=== PATIENT | female | born 1985 | race Caucasian/White ===

== ENCOUNTER 2016-11-09 08:28 | Emergency (ER) | payer OTHER ==
[~2016-11-09] VITALS: Ht 162.6 cm; Wt 75.5 kg
--- NOTE | ~2016-11-09 | MR17 ---
[facility] A Service of [facility] RADIOLOGY TEXT RESULTS PATIENT: YANCI KIRAN LOCATION: [facility] : 89 UNIT #: [id number] AGE: [address]: Eli Bertrand APRN SEX: F ORDER DR: [id number] [facility] [address] [place], [place] [address] [id number] E MR#: [id number] Acc #: [id number] NAME: YANCI KIRAN : 1985 SEX: F STUDY DATE/TIME: 11/09/2016 12:48 UNIT: [facility] ROOM: STUDY DESCRIPTION: MR Brain WWo Contrast Attending Physician: Eli Bertrand A.P.R.N. Ordering Physician: Edd Pereira M.D. Primary Care Physician: Sloan Leung M.D. MRI CENTER REPORT This report is preliminary unless electronic signature is present. EXAM MRI brain with and without contrast HISTORY Left-side facial droop and headache. Left side facial swelling has worsened since last night with left side facial droop. Swelling started on 11/05/2016. Patient felt there was concern for Montilla's palsy. No history of trauma or cancer provided. COMMENTS MRI of the brain was performed prior to and following intravenous administration of 16 mL of MultiHance. This includes pre and postcontrast imaging of the whole brain as well as pre and postcontrast imaging of the internal auditory canals with higher resolution. There is no evidence for a recent ischemic insult on the diffusion series. Midline structures are unremarkable. There is no extraaxial fluid collection. The ventricles are normal in size and configuration and holland-white junction is well-maintained for age group. The major intracranial flow voids are maintained allowing for hypoplastic or diseased distal right vertebral artery. Paranasal sinuses are clear and mastoid air cells are clear. Evaluation of the internal auditory canals shows a well-defined appearance of bilateral seventh and eighth nerve complex. Following contrast administration, there is no definite pathologic intracanalicular enhancement. Specifically, no asymmetric enhancement of the facial nerve is appreciated, but this does not exclude the diagnosis of Montilla palsy suspected clinically. Clinical followup is recommended. Postcontrast imaging of the whole brain shows no pathologic intracranial enhancement. IMPRESSION 1. Essentially normal MRI of the brain with attention to the IACs with without contrast. 2. There is no evidence for recent ischemic insult on the diffusion STS. [facility] A Service of [facility] RADIOLOGY TEXT RESULTS PATIENT: YANCI KIRAN [id number] : 89 UNIT #: [id number] AGE: [address]: Eli Bertrand APRN SEX: F ORDER DR: dora. 3. There is no imaging evidence for Montilla's palsy but this does not exclude the diagnosis clinically. STAT * RESULT Dictated by... Rosenda Kathleen M.D. THIS IS AN ELECTRONICALLY VERIFIED REPORT Rosenda Kathleen M.D. at 11/09/2016 3:21 PM CHRISTINE/francesco TD: 11/09/2016 14:25 JOB #: [id number] MRI CENTER REPORT Page 1 of 1 COPY
[~2016-11-09 08:28] MED LIST: AMOXIL500 M1 PO; BACTRIM DS TABL1 TAB PO; BENTYL20 MG PO; BIRTH CONTROL PILL PO; COLESTID PO; FLEXERIL PO; FLORASTOR250 M1 PO; HYDROCODONE/APA1 T16 PO; IBUPROFEN PO; LEVAQUIN PO; LIBRAX1 CAP 5/2. PO; MUCINEX D ER T1 EAC1 PO; NUVARING V1 VAG.RING VG; ORUDIS75 M1 PO; REMERON15 MG PO; VANCOCIN HCL500 MG PO; VICODIN 5/500 T1 TAB PO; ZOFRAN PO
[2016-11-09 10:30] LABS: BASOPHIL% 0.2 % (0-2.5); HEMATOCRIT 39.2 % (35.0-45.0); HEMOGLOBIN 12.3 gm/dL (12.0-16.0); LYMPHOCYTE# 4.9 X10e3 (1.0-3.5); LYMPHOCYTE% 37.7 % (17.0-45.0); MEAN CELL VOLUME 82.1 FL (83-96); MEAN CORPUSCULAR HEMOGLOBIN 25.8 PG (28-34); MEAN CORPUSCULAR HGB CONC 31.5 g/dL (30-36); MEAN PLATELET VOLUME 8.8 FL (6.5-11.5); MONOCYTE# 1.2 X10e3 (0-1.0); MONOCYTE% 8.9 % (3.0-12.0); NEUTROPHIL# 6.9 X10e3 (1.5-7.1); NEUTROPHIL% 53.2 % (40-75); PLATELET COUNT 271 X10e3 (140-420); RED BLOOD COUNT 4.77 X10e (3.90-5.30); RED CELL DISTRIBUTION WIDTH 14.6 % (11.0-15.5); WHITE BLOOD COUNT 12.9 X10e3 (4.0-10.5)
[2016-11-09 10:32] LABS: DIFF IND NO
[2016-11-09 10:58] LABS: ALBUMIN SERUM 3.6 g/dL (3.5-5.0); BILIRUBIN,TOTAL 0.2 mg/dL (0.2-2.0); BUN/CREATININE RATIO 18.33; CALCIUM SERUM 8.4 mg/dL (8.4-10.2); CREATININE SERUM 0.6 mg/dL (0.6-1.4); GLOM FILT RATE Estimated 123.2 mL/min (>60); POTASSIUM 3.3 mmol/L (3.5-5.1); PROTEIN TOTAL SERUM 6.9 g/dL (6.0-8.3)
== END 2016-11-09 15:23 | disposition home or self-care (01) ==
LOC: CED 08:28
PROVIDERS: Nurse Practitioner
DX: G51.0 Bell's palsy (principal); Z88.2 Allergy status to sulfonamides; Z88.5 Allergy status to narcotic agent; Z88.8 Allergy status to other drugs, medicaments and biological substances; Z79.899 Other long term (current) drug therapy
CPT/HCPCS: 36415; 70553; 80053; 85025; 96374; 96375; 99284; A9577; J1885; J2270